=== PATIENT | female | born 1960 | race Hispanic/Latino ===

== ENCOUNTER 2021-05-11 13:46 | Inpatient (IN) | payer SELFPAY ==
[~2021-05-11 13:46] MED LIST: Iopamidol-370 76% 500 ML 1 ML ONE
[2021-05-11 14:25] LABS: #Monocytes 0.5 thou/uL (0.11-0.59); #Neutrophils 7.6 thou/uL (1.40-6.50); %Basophils 0.3 % (0.0-1.0); %Eosinophils 0.2 % (0.0-10.0); %Lymphocytes 11.2 % (21.0-51.0); %Monocytes 4.9 % (0.0-10.0); %Neutrophils 83.4 % (42.0-75.0); Hemoglobin 13.9 g/dL (12.0-16.0); Mean Corpuscular HGB CONC 33.9 g/dL (32.0-36.0); Mean Corpuscular Hemoglobin 31.7 pg (27.0-31.0); Mean Corpuscular Volume 93.6 fL (78.0-98.0); Mean Platelet Volume 8.1 fL (7.4-10.4); Platelet Count 287 thou/uL (130-400); RBC Distribution Width 12.5 % (11.5-14.5); Red Blood Cell (RBC) Count 4.37 mill/uL (4.20-5.40); White Blood Cell (WBC) Count 9.2 thou/uL (4.8-10.8)
[2021-05-11 14:59] LABS: ALT (SGPT) 70 U/L (8-55); AST (SGOT) 49 U/L (5-34); Albumin 3.7 g/dL (3.5-5.0); Alkaline Phosphatase 139 U/L (40-110); Anion Gap 13 mmol/L (10-20); BUN (Urea Nitrogen) 11 mg/dL (9.8-20.1); Bilirubin, Total 0.6 mg/dL (0.2-1.2); Calc. Creatinine Clearance 0 mL/min (70-130); Calcium 8.4 mg/dL (7.8-10.44); Carbon Dioxide 25 mmol/L (22-29); Chloride 104 mmol/L (98-107); Globulin 3.3 g/dL (2.4-3.5); Glucose 111 mg/dL (70-105); Potassium 4.5 mmol/L (3.5-5.1); Sodium 137 mmol/L (136-145)
[2021-05-11] MEDS ORDERED: Dexamethasone 4 mg/ml Vial ONE (15:48)
[2021-05-11] MEDS ORDERED: Dexamethasone 4 MG TAB ONE (15:48)
[2021-05-11] MEDS ORDERED: Ibuprofen 200 MG TAB ONE (15:48)
[2021-05-11] MEDS ORDERED: Cefepime 1 GM VIAL ONE (16:22)
[2021-05-11 16:34] LABS: SARS-CoV-2 NAA Rapid Test DETECTED (NotDetected)
[2021-05-11] MEDS ORDERED: Albuterol 200 PUFF (6.7GM INHALER) INH PRN (18:12)
[2021-05-11] MEDS ORDERED: Ondansetron ODT 4 MG TAB PO PRN (19:47)
[2021-05-11] MEDS ORDERED: Ondansetron PF 4 MG/2 ML Vial IVP PRN (19:47)
[2021-05-11] MEDS ORDERED: Calcium Carbonate 500 MG ChewTAB PO PRN (19:47)
[2021-05-11] MEDS ORDERED: Acetaminophen 325 MG TAB PO PRN (19:47)
[2021-05-11] MEDS ORDERED: Senokot S 8.6-50 MG TAB PO PRN (19:47)
[2021-05-11] MEDS ORDERED: GUAIFENESIN SF SOLN 200 MG/10 ML UDCUP PO PRN (19:50)
[2021-05-11] MEDS ORDERED: Cholecalciferol 1,000 UNITS (25 MCG) TAB ONE (23:13)
[2021-05-11] MEDS ORDERED: Zinc Sulfate 220 MG CAP ONE (23:13)
[2021-05-11] MEDS ORDERED: Enoxaparin Sodium 40 MG/0.4 ML SYRINGE ONE (23:13)
[2021-05-11] MEDS ORDERED: Famotidine 20 MG TAB ONE (23:13)
[2021-05-11] MEDS: Cholecalciferol 1,000 UNITS (25 MCG) TAB PO SCH (23:18)
[2021-05-11] MEDS: Famotidine 20 MG TAB PO SCH (23:19)
[2021-05-11] MEDS: Enoxaparin Sodium 40 MG/0.4 ML SYRINGE SC SCH (23:19)
[2021-05-11] MEDS: Zinc Sulfate 220 MG CAP PO SCH (23:19)
[2021-05-11] MEDS: Doxycycline 100 MG CAP PO SCH (23:32)
[2021-05-11] MEDS: guaiFENesin ER 600 MG TAB PO SCH (23:32)
[2021-05-12 00:34] VITALS: BMI 42.0
[2021-05-12] MEDS: Albuterol 200 PUFF (6.7GM INHALER) INH SCH ×7 (03:45→23:27)
[2021-05-12 05:37] LABS: Band 16 % (5-11); Hemoglobin 13.8 g/dL (12.0-16.0); Lymphocytes 9 % (21-51); MDiff Complete? YES; Mean Corpuscular HGB CONC 34.3 g/dL (32.0-36.0); Mean Corpuscular Hemoglobin 32.1 pg (27.0-31.0); Mean Corpuscular Volume 93.7 fL (78.0-98.0); Mean Platelet Volume 8.4 fL (7.4-10.4); Monocytes 3 % (0-10); Neutrophil 70 % (42-75); Platelet Count 331 thou/uL (130-400); Platelet Morphology Comment Appears Adequate; RBC Distribution Width 12.5 % (11.5-14.5); RBC Morphology Normal; Reactive Lymphocytes 2 % (0-10); Red Blood Cell (RBC) Count 4.31 mill/uL (4.20-5.40); White Blood Cell (WBC) Count 7.2 thou/uL (4.8-10.8)
[2021-05-12 05:49] LABS: ALT (SGPT) 68 U/L (8-55); AST (SGOT) 38 U/L (5-34); Albumin 3.6 g/dL (3.5-5.0); Alkaline Phosphatase 137 U/L (40-110); Anion Gap 15 mmol/L (10-20); BUN (Urea Nitrogen) 13 mg/dL (9.8-20.1); Bilirubin, Total 0.6 mg/dL (0.2-1.2); CRP (Inflammatory) 11.85 mg/dL (= or < 0.5); Calc. Creatinine Clearance 169 mL/min (70-130); Calcium 8.9 mg/dL (7.8-10.44); Carbon Dioxide 22 mmol/L (22-29); Chloride 105 mmol/L (98-107); Globulin 3.9 g/dL (2.4-3.5); Glucose 133 mg/dL (70-105); Magnesium 2.5 mg/dL (1.6-2.6); Phosphorus 4.5 mg/dL (2.3-4.7); Potassium 4.5 mmol/L (3.5-5.1); Protein, Total 7.5 g/dL (6.0-8.3); Sodium 137 mmol/L (136-145)
[2021-05-12] MEDS ORDERED: REMDESIVIR 200 MG in Sodium Chloride 0.9% 250 ML 210 ML IV SCH (09:00)
[2021-05-12] MEDS: Dexamethasone 10 MG/ML VIAL SLOW IVP SCH (09:13)
[2021-05-12] MEDS: Famotidine 20 MG TAB PO SCH ×2 (09:14→21:24)
[2021-05-12] MEDS: guaiFENesin ER 600 MG TAB PO SCH ×2 (09:14→21:24)
[2021-05-12] MEDS: Ascorbic Acid 500 mg Chewable Tablet PO SCH (09:14)
[2021-05-12] MEDS: Doxycycline 100 MG CAP PO SCH ×2 (09:14→21:25)
[2021-05-12] MEDS: Cholecalciferol 1,000 UNITS (25 MCG) TAB PO SCH (21:24)
[2021-05-12] MEDS: Zinc Sulfate 220 MG CAP PO SCH (21:24)
[2021-05-12] MEDS: Enoxaparin Sodium 40 MG/0.4 ML SYRINGE SC SCH (21:27)
[2021-05-13] MEDS: Albuterol 200 PUFF (6.7GM INHALER) INH SCH ×6 (04:56→23:22)
[2021-05-13 05:20] LABS: #Lymphocytes 1.2 thou/uL (1.20-3.40); #Monocytes 0.9 thou/uL (0.11-0.59); #Neutrophils 11.5 thou/uL (1.40-6.50); %Eosinophils 0.1 % (0.0-10.0); %Lymphocytes 8.9 % (21.0-51.0); %Monocytes 6.3 % (0.0-10.0); %Neutrophils 84.7 % (42.0-75.0); Hemoglobin 13.2 g/dL (12.0-16.0); Mean Corpuscular HGB CONC 31.6 g/dL (32.0-36.0); Mean Corpuscular Hemoglobin 30.2 pg (27.0-31.0); Mean Corpuscular Volume 95.4 fL (78.0-98.0); Mean Platelet Volume 8.5 fL (7.4-10.4); Platelet Count 413 thou/uL (130-400); RBC Distribution Width 12.6 % (11.5-14.5); Red Blood Cell (RBC) Count 4.38 mill/uL (4.20-5.40); White Blood Cell (WBC) Count 13.6 thou/uL (4.8-10.8)
[2021-05-13 05:41] LABS: ALT (SGPT) 86 U/L (8-55); AST (SGOT) 46 U/L (5-34); Albumin 3.4 g/dL (3.5-5.0); Alkaline Phosphatase 123 U/L (40-110); Anion Gap 13 mmol/L (10-20); BUN (Urea Nitrogen) 22 mg/dL (9.8-20.1); Bilirubin, Total 0.5 mg/dL (0.2-1.2); CRP (Inflammatory) 5.36 mg/dL (= or < 0.5); Calc. Creatinine Clearance 152 mL/min (70-130); Calcium 8.8 mg/dL (7.8-10.44); Carbon Dioxide 24 mmol/L (22-29); Chloride 107 mmol/L (98-107); Globulin 3.7 g/dL (2.4-3.5); Glucose 123 mg/dL (70-105); Potassium 4.3 mmol/L (3.5-5.1); Protein, Total 7.1 g/dL (6.0-8.3); Sodium 140 mmol/L (136-145)
[2021-05-13] MEDS ORDERED: Dextrose 5% in Water 1,000 ML IV PRN (07:42)
[2021-05-13] MEDS ORDERED: HumaLOG 300 UNITS/3 ML VIAL SC PRN (07:42)
[2021-05-13] MEDS ORDERED: Dextrose 50% Abboject 50 ML SYRINGE SLOW IVP PRN (07:42)
[2021-05-13 08:08] LABS: Hemoglobin A1c 5.5 % (4.0-6.0)
[2021-05-13] MEDS: Doxycycline 100 MG CAP PO SCH ×2 (09:16→21:05)
[2021-05-13] MEDS: REMDESIVIR 100 MG in Sodium Chloride 0.9% 250 ML 230 ML IV SCH (09:16)
[2021-05-13] MEDS: guaiFENesin ER 600 MG TAB PO SCH ×2 (09:16→21:05)
[2021-05-13] MEDS: Famotidine 20 MG TAB PO SCH ×2 (09:17→21:05)
[2021-05-13] MEDS: Dexamethasone 10 MG/ML VIAL SLOW IVP SCH (09:17)
[2021-05-13] MEDS: Ascorbic Acid 500 mg Chewable Tablet PO SCH (09:17)
[2021-05-13] MEDS ORDERED: Colchicine 0.6 MG TAB PO SCH (12:00)
[2021-05-13] MEDS ORDERED: Colchicine 0.3 MG TAB PO SCH (12:15)
[2021-05-13 12:18] LABS: Magnesium 2.5 mg/dL (1.6-2.6)
[2021-05-13] MEDS: Cholecalciferol 1,000 UNITS (25 MCG) TAB PO SCH (21:05)
[2021-05-13] MEDS: Zinc Sulfate 220 MG CAP PO SCH (21:05)
[2021-05-13] MEDS: Colchicine 0.3 MG TAB PO SCH (21:05)
[2021-05-13] MEDS: Enoxaparin Sodium 40 MG/0.4 ML SYRINGE SC SCH (21:05)
[2021-05-14] MEDS: Albuterol 200 PUFF (6.7GM INHALER) INH SCH ×6 (02:51→21:22)
[2021-05-14 05:23] LABS: #Basophils 0.3 thou/uL (0.0-0.2); #Lymphocytes 1.3 thou/uL (1.20-3.40); #Monocytes 1.1 thou/uL (0.11-0.59); #Neutrophils 12.1 thou/uL (1.40-6.50); %Basophils 1.8 % (0.0-1.0); %Eosinophils 0.2 % (0.0-10.0); %Lymphocytes 8.8 % (21.0-51.0); %Monocytes 7.4 % (0.0-10.0); %Neutrophils 81.8 % (42.0-75.0); Hemoglobin 13.1 g/dL (12.0-16.0); Mean Corpuscular HGB CONC 32.6 g/dL (32.0-36.0); Mean Corpuscular Hemoglobin 30.8 pg (27.0-31.0); Mean Corpuscular Volume 94.5 fL (78.0-98.0); Mean Platelet Volume 8.2 fL (7.4-10.4); Platelet Count 431 thou/uL (130-400); RBC Distribution Width 12.5 % (11.5-14.5); Red Blood Cell (RBC) Count 4.25 mill/uL (4.20-5.40); White Blood Cell (WBC) Count 14.8 thou/uL (4.8-10.8)
[2021-05-14 05:50] LABS: ALT (SGPT) 102 U/L (8-55); AST (SGOT) 41 U/L (5-34); Albumin 3.3 g/dL (3.5-5.0); Alkaline Phosphatase 113 U/L (40-110); Anion Gap 13 mmol/L (10-20); BUN (Urea Nitrogen) 18 mg/dL (9.8-20.1); Bilirubin, Total 0.4 mg/dL (0.2-1.2); Calc. Creatinine Clearance 166 mL/min (70-130); Calcium 8.7 mg/dL (7.8-10.44); Carbon Dioxide 23 mmol/L (22-29); Chloride 108 mmol/L (98-107); Globulin 3.4 g/dL (2.4-3.5); Glucose 109 mg/dL (70-105); Potassium 4.2 mmol/L (3.5-5.1); Protein, Total 6.7 g/dL (6.0-8.3); Sodium 140 mmol/L (136-145)
[2021-05-14] MEDS: guaiFENesin ER 600 MG TAB PO SCH ×2 (09:00→21:21)
[2021-05-14] MEDS: Doxycycline 100 MG CAP PO SCH ×2 (09:00→21:21)
[2021-05-14] MEDS: Ascorbic Acid 500 mg Chewable Tablet PO SCH (09:00)
[2021-05-14] MEDS: Famotidine 20 MG TAB PO SCH ×2 (09:00→21:21)
[2021-05-14] MEDS: Dexamethasone 10 MG/ML VIAL SLOW IVP SCH (09:01)
[2021-05-14] MEDS: Colchicine 0.3 MG TAB PO SCH ×2 (09:01→21:21)
[2021-05-14] MEDS: REMDESIVIR 100 MG in Sodium Chloride 0.9% 250 ML 230 ML IV SCH (09:06)
[2021-05-14] MEDS: Zinc Sulfate 220 MG CAP PO SCH (21:21)
[2021-05-14] MEDS: Cholecalciferol 1,000 UNITS (25 MCG) TAB PO SCH (21:21)
[2021-05-14] MEDS: Enoxaparin Sodium 40 MG/0.4 ML SYRINGE SC SCH (21:21)
[2021-05-14] MEDS: hydrALAZINE 25 MG TAB PO PRN (21:59)
[2021-05-15] MEDS: Albuterol 200 PUFF (6.7GM INHALER) INH SCH ×6 (02:42→23:07)
[2021-05-15 05:16] LABS: ALT (SGPT) 116 U/L (8-55); AST (SGOT) 40 U/L (5-34); Albumin 3.2 g/dL (3.5-5.0); Alkaline Phosphatase 113 U/L (40-110); Anion Gap 13 mmol/L (10-20); BUN (Urea Nitrogen) 20 mg/dL (9.8-20.1); Bilirubin, Total 0.4 mg/dL (0.2-1.2); CRP (Inflammatory) 2.09 mg/dL (= or < 0.5); Calc. Creatinine Clearance 171 mL/min (70-130); Calcium 8.7 mg/dL (7.8-10.44); Carbon Dioxide 21 mmol/L (22-29); Chloride 110 mmol/L (98-107); Globulin 3.5 g/dL (2.4-3.5); Glucose 104 mg/dL (70-105); Potassium 4.6 mmol/L (3.5-5.1); Protein, Total 6.7 g/dL (6.0-8.3); Sodium 139 mmol/L (136-145)
[2021-05-15] MEDS: Dexamethasone 10 MG/ML VIAL SLOW IVP SCH (09:50)
[2021-05-15] MEDS: guaiFENesin ER 600 MG TAB PO SCH ×2 (09:50→21:18)
[2021-05-15] MEDS: Famotidine 20 MG TAB PO SCH ×2 (09:50→21:17)
[2021-05-15] MEDS: Doxycycline 100 MG CAP PO SCH ×2 (09:51→21:17)
[2021-05-15] MEDS: Colchicine 0.3 MG TAB PO SCH ×2 (09:51→21:21)
[2021-05-15] MEDS: REMDESIVIR 100 MG in Sodium Chloride 0.9% 250 ML 230 ML IV SCH (09:51)
[2021-05-15] MEDS: Ascorbic Acid 500 mg Chewable Tablet PO SCH (09:51)
[2021-05-15] MEDS: Zinc Sulfate 220 MG CAP PO SCH (21:17)
[2021-05-15] MEDS: Enoxaparin Sodium 40 MG/0.4 ML SYRINGE SC SCH (21:17)
[2021-05-15] MEDS: Cholecalciferol 1,000 UNITS (25 MCG) TAB PO SCH (21:17)
[2021-05-16] MEDS: Albuterol 200 PUFF (6.7GM INHALER) INH SCH ×6 (02:54→22:29)
[2021-05-16] MEDS ORDERED: hydrALAZINE 20 MG/ML VIAL SLOW IVP PRN (05:14)
[2021-05-16] MEDS ORDERED: Dextrose 5% in Water 1,000 ML IV PRN (05:19)
[2021-05-16] MEDS ORDERED: Dextrose 50% Abboject 50 ML SYRINGE SLOW IVP PRN (05:19)
[2021-05-16] MEDS: hydrALAZINE 25 MG TAB PO PRN (05:49)
[2021-05-16 05:52] LABS: ALT (SGPT) 111 U/L (8-55); AST (SGOT) 30 U/L (5-34); Albumin 3.2 g/dL (3.5-5.0); Alkaline Phosphatase 111 U/L (40-110); Bilirubin, Direct 0.2 mg/dL (0.1-0.3); Bilirubin, Total 0.4 mg/dL (0.2-1.2); Protein, Total 6.5 g/dL (6.0-8.3)
[2021-05-16 05:58] LABS: ALT (SGPT) 113 U/L (8-55); AST (SGOT) 30 U/L (5-34); Albumin 3.2 g/dL (3.5-5.0); Alkaline Phosphatase 110 U/L (40-110); Anion Gap 13 mmol/L (10-20); BUN (Urea Nitrogen) 17 mg/dL (9.8-20.1); Bilirubin, Total 0.4 mg/dL (0.2-1.2); Calc. Creatinine Clearance 176 mL/min (70-130); Calcium 8.8 mg/dL (7.8-10.44); Carbon Dioxide 23 mmol/L (22-29); Chloride 109 mmol/L (98-107); Globulin 3.4 g/dL (2.4-3.5); Glucose 109 mg/dL (70-105); Potassium 4.5 mmol/L (3.5-5.1); Protein, Total 6.6 g/dL (6.0-8.3); Sodium 140 mmol/L (136-145)
[2021-05-16] MEDS: Doxycycline 100 MG CAP PO SCH ×2 (09:18→20:11)
[2021-05-16] MEDS: guaiFENesin ER 600 MG TAB PO SCH ×2 (09:18→20:11)
[2021-05-16] MEDS: REMDESIVIR 100 MG in Sodium Chloride 0.9% 250 ML 230 ML IV SCH (09:18)
[2021-05-16] MEDS: Colchicine 0.3 MG TAB PO SCH ×2 (09:18→20:11)
[2021-05-16] MEDS: Famotidine 20 MG TAB PO SCH ×2 (09:18→20:11)
[2021-05-16] MEDS: Dexamethasone 10 MG/ML VIAL SLOW IVP SCH (09:18)
[2021-05-16] MEDS: Ascorbic Acid 500 mg Chewable Tablet PO SCH (09:19)
[2021-05-16] MEDS: Enoxaparin Sodium 40 MG/0.4 ML SYRINGE SC SCH (20:10)
[2021-05-16] MEDS: Cholecalciferol 1,000 UNITS (25 MCG) TAB PO SCH (20:11)
[2021-05-16] MEDS: Zinc Sulfate 220 MG CAP PO SCH (20:11)
[2021-05-16 20:45] LABS: #Lymphocytes 0.9 thou/uL (1.20-3.40); #Monocytes 0.3 thou/uL (0.11-0.59); #Neutrophils 10.5 thou/uL (1.40-6.50); %Basophils 0.1 % (0.0-1.0); %Eosinophils 0.3 % (0.0-10.0); %Lymphocytes 7.9 % (21.0-51.0); %Monocytes 2.7 % (0.0-10.0); %Neutrophils 89.1 % (42.0-75.0); Hemoglobin 14.5 g/dL (12.0-16.0); Mean Corpuscular HGB CONC 32.7 g/dL (32.0-36.0); Mean Corpuscular Hemoglobin 30.6 pg (27.0-31.0); Mean Corpuscular Volume 93.8 fL (78.0-98.0); Platelet Count 557 thou/uL (130-400); RBC Distribution Width 12.8 % (11.5-14.5); Red Blood Cell (RBC) Count 4.73 mill/uL (4.20-5.40); White Blood Cell (WBC) Count 11.8 thou/uL (4.8-10.8)
[2021-05-17] MEDS: Albuterol 200 PUFF (6.7GM INHALER) INH SCH ×6 (02:46→22:45)
[2021-05-17 05:16] LABS: Hemoglobin 14.2 g/dL (12.0-16.0); Mean Corpuscular HGB CONC 32.8 g/dL (32.0-36.0); Mean Corpuscular Hemoglobin 30.5 pg (27.0-31.0); Mean Corpuscular Volume 92.8 fL (78.0-98.0); Mean Platelet Volume 8.1 fL (7.4-10.4); Platelet Count 485 thou/uL (130-400); RBC Distribution Width 12.6 % (11.5-14.5); Red Blood Cell (RBC) Count 4.67 mill/uL (4.20-5.40); White Blood Cell (WBC) Count 12.1 thou/uL (4.8-10.8)
[2021-05-17 05:48] LABS: ALT (SGPT) 105 U/L (8-55); AST (SGOT) 26 U/L (5-34); Albumin 3.1 g/dL (3.5-5.0); Alkaline Phosphatase 99 U/L (40-110); Anion Gap 12 mmol/L (10-20); BUN (Urea Nitrogen) 18 mg/dL (9.8-20.1); Bilirubin, Total 0.4 mg/dL (0.2-1.2); Calc. Creatinine Clearance 176 mL/min (70-130); Calcium 8.7 mg/dL (7.8-10.44); Carbon Dioxide 21 mmol/L (22-29); Chloride 108 mmol/L (98-107); Globulin 3.4 g/dL (2.4-3.5); Glucose 99 mg/dL (70-105); Protein, Total 6.5 g/dL (6.0-8.3); Sodium 137 mmol/L (136-145)
[2021-05-17] MEDS: Ascorbic Acid 500 mg Chewable Tablet PO SCH (09:16)
[2021-05-17] MEDS: Famotidine 20 MG TAB PO SCH ×2 (09:16→19:25)
[2021-05-17] MEDS: Colchicine 0.3 MG TAB PO SCH ×2 (09:16→19:25)
[2021-05-17] MEDS: guaiFENesin ER 600 MG TAB PO SCH ×2 (09:16→19:25)
[2021-05-17] MEDS: Doxycycline 100 MG CAP PO SCH ×2 (09:16→19:25)
[2021-05-17] MEDS: Dexamethasone 10 MG/ML VIAL SLOW IVP SCH (10:20)
[2021-05-17] MEDS: Amlodipine 5 MG TAB PO SCH (13:29)
[2021-05-17] MEDS: Zinc Sulfate 220 MG CAP PO SCH (19:25)
[2021-05-17] MEDS: Enoxaparin Sodium 40 MG/0.4 ML SYRINGE SC SCH (19:25)
[2021-05-17] MEDS: Cholecalciferol 1,000 UNITS (25 MCG) TAB PO SCH (19:25)
[2021-05-18] MEDS: Albuterol 200 PUFF (6.7GM INHALER) INH SCH ×4 (03:39→14:47)
[2021-05-18 05:19] LABS: #Lymphocytes 1.5 thou/uL (1.20-3.40); #Monocytes 0.9 thou/uL (0.11-0.59); #Neutrophils 11.4 thou/uL (1.40-6.50); %Basophils 0.1 % (0.0-1.0); %Eosinophils 0.3 % (0.0-10.0); %Lymphocytes 10.8 % (21.0-51.0); %Monocytes 6.4 % (0.0-10.0); %Neutrophils 82.4 % (42.0-75.0); Hemoglobin 13.7 g/dL (12.0-16.0); Mean Corpuscular HGB CONC 31.5 g/dL (32.0-36.0); Mean Corpuscular Hemoglobin 29.6 pg (27.0-31.0); Mean Corpuscular Volume 94.1 fL (78.0-98.0); Mean Platelet Volume 7.8 fL (7.4-10.4); Platelet Count 539 thou/uL (130-400); RBC Distribution Width 12.9 % (11.5-14.5); Red Blood Cell (RBC) Count 4.63 mill/uL (4.20-5.40); White Blood Cell (WBC) Count 13.8 thou/uL (4.8-10.8)
[2021-05-18] MEDS: Ascorbic Acid 500 mg Chewable Tablet PO SCH (08:39)
[2021-05-18] MEDS: Doxycycline 100 MG CAP PO SCH (08:39)
[2021-05-18] MEDS: guaiFENesin ER 600 MG TAB PO SCH (08:39)
[2021-05-18] MEDS: Amlodipine 5 MG TAB PO SCH (08:40)
[2021-05-18] MEDS: Famotidine 20 MG TAB PO SCH (08:40)
[2021-05-18] MEDS: Dexamethasone 10 MG/ML VIAL SLOW IVP SCH (08:40)
[2021-05-18] MEDS: Colchicine 0.3 MG TAB PO SCH (08:50)
[2021-05-18 13:07] VITALS: BP 114/66; TEMP 98.3
== END 2021-05-18 15:20 | disposition home or self-care (01) | DRG 871 ==
LOC: ERS 13:46 → ERHOLD 16:21 → 2SW 05-12 00:16
PROVIDERS: ADMIT Internal Medicine; ATTEND Internal Medicine
PROC: 8E0ZXY6 Isolation (ICD-10-PCS; principal; 2021-05-11)
PROC: XW033E5 Introduction of Remdesivir Anti-infective into Peripheral Vein, Percutaneous Approach, New Technology Group 5 (ICD-10-PCS; 2021-05-12)
DX: A41.89 Other specified sepsis (principal); U07.1 COVID-19; J12.82 Pneumonia due to coronavirus disease 2019; J96.01 Acute respiratory failure with hypoxia; I47.2 Ventricular tachycardia; R65.20 Severe sepsis without septic shock; R19.7 Diarrhea, unspecified; R74.01 Elevation of levels of liver transaminase levels; I10 Essential (primary) hypertension; D72.829 Elevated white blood cell count, unspecified; T38.0X5A Adverse effect of glucocorticoids and synthetic analogues, initial encounter; Z88.0 Allergy status to penicillin
CPT/HCPCS: 0240U; 36415; 71045; 71275; 80053; 82728; 83036; 83615; 83735; 83880; 84100; 84145; 84484; 85025; 85027; 85379; 86140; 87040; 93005; 96365; J0692; J1100; J1650; J1956; J7050; J8540; Q9967